=== PATIENT | male | born 1980 | race Caucasian/White ===

== ENCOUNTER 2020-10-11 16:09 | Emergency (ER) | payer MEDICAID ==
[~2020-10-11] VITALS: Ht 162.6 cm; Wt 59.9 kg
[2020-10-11 16:22] VITALS: BP 143/87
--- NOTE | 2020-10-11 17:12 | NUR ---
LAB BEDSIDE COLLECTING BEDWORK
--- NOTE | 2020-10-11 17:15 | NUR ---
[facility] BEDSIDE EVALUATING PT
--- NOTE | 2020-10-11 17:15 | NUR ---
39 Y/O MALE C/O EPIGASTRIC PAIN 05/01 1XDAY. DENIES N/V, DENIES FEVER/CHILLS. PT STATED THE PAIN ONLY OCCURS AFTER HE EATS. DENIES PMH NKA
[2020-10-11 17:23] LABS: BASOPHILS # (AUTO) 0.1 K/uL (0.00-0.22); BASOPHILS % (AUTO) 0.7 % (0.0-2.0); EOSINOPHILS # (AUTO) 0.1 K/uL (0-0.4); EOSINOPHILS % (AUTO) 1.7 % (0.0-4.0); HEMATOCRIT 42.1 % (36-52); LYMPHOCYTES # (AUTO) 2.1 K/uL (2.0-11.5); LYMPHOCYTES % (AUTO) 25.2 % (20.5-51.1); MEAN CORPUSCULAR HEMOGLOBIN 30 pg (27-31); MEAN CORPUSCULAR HGB CONC 33 g/dL (33-37); MEAN CORPUSCULAR VOLUME 90.3 fL (80-94); MONOCYTES # (AUTO) 0.5 K/uL (0.8-1.0); MONOCYTES % (AUTO) 5.6 % (1.7-9.3); NEUTROPHILS # (AUTO) 5.5 K/uL (1.8-7.7); NEUTROPHILS % (AUTO) 66.8 % (42.2-75.2); PLATELET COUNT (AUTO) 175 K/uL (140-450); RED BLOOD CELL COUNT(AUTO) 4.66 MIL/uL (4.20-6.10); RED CELL DISTRIBUTION WIDTH 14.2 % (11.6-13.7); WHITE BLOOD COUNT (AUTO) 8.2 K/uL (4.8-10.8)
[2020-10-11 17:41] LABS: ALBUMIN 3.7 g/dL (3.4-5.0); ANION GAP 13.3 (8-16); CARBON DIOXIDE 26.7 mmol/L (21-32); TOTAL BILIRUBIN 0.2 mg/dL (0.0-1.0)
[2020-10-11] MEDS ORDERED: IBUP-2213 PO (17:54)
[2020-10-11 18:11] VITALS: BP 132/72
--- NOTE | 2020-10-11 18:11 | NUR ---
COVID SWAB COLLECTED AND SENT TO LAB.
== END 2020-10-11 18:11 | disposition home or self-care (01) ==
LOC: MED 16:09
DX: K45.8 Other specified abdominal hernia without obstruction or gangrene (principal); Z20.822 Contact with and (suspected) exposure to COVID-19
CPT/HCPCS: 36415; 80053; 83690; 85025; 99283

== ENCOUNTER 2022-01-14 20:59 | Emergency (ER) | payer MEDICAID ==
[~2022-01-14] VITALS: Ht 167.6 cm; Wt 68.0 kg
[~2022-01-14 20:59] MED LIST: IBUP-2213 PO
--- NOTE | 2022-01-14 21:40 | NUR ---
CALLED TO TRIAGE, NO ANSWER
--- NOTE | 2022-01-14 21:55 | NUR ---
CALLED TO TRIAGE, NO ANSWER
--- NOTE | 2022-01-14 22:01 | NUR ---
CALLED TO TRIAGE NO ANSWER. TOLD PT LEFT. PT LWBS
[2022-01-14 22:23] VITALS: BP 153/76
--- NOTE | 2022-01-14 22:23 | NUR ---
PT RETURNED TO ER TO BE TRIAGED
--- NOTE | 2022-01-14 23:19 | NUR ---
PT CALLED FROM INSIDE LOBBY AND OUTSIDE, NO REPSONSE
--- NOTE | 2022-01-14 23:56 | NUR ---
PT TAKEN TO BED 11.
--- NOTE | 2022-01-15 00:31 | NUR ---
41/M BIB SELF C/C SORE THROAT X YESTERDAY. PATIENT ALSO C/O RIGHT EAR PAIN X1WEEK. +HEADACHE 05/01. DENIES PMHX, RX, ALLERGIES
[2022-01-15] MEDS ORDERED: ACETAMINOPHEN EXTRA STRENGTH 500 MG TAB PO ONE (00:40)
[2022-01-15] MEDS ORDERED: AMOXICILLIN 500 MG CAP PO ONE (00:55)
--- NOTE | 2022-01-15 01:07 | NUR ---
PATIENT MEDICATED. TOLERATED WELL.
[2022-01-15] MEDS ORDERED: ACET-10509 PO (01:20)
[2022-01-15] MEDS ORDERED: AMOX500C25 PO (01:20)
[2022-01-15 01:29] VITALS: BP 148/78
--- NOTE | 2022-01-15 01:29 | NUR ---
Patient discharged with v/s stable. Written and verbal after care instructions given and explained. Patient alert, oriented and verbalized understanding of instructions. Ambulatory with steady gait. All questions addressed prior to discharge. ID band removed. Patient advised to follow up with PMD. Rx of amoxicillin, acetaminophen given. Patient educated on indication of medication including possible reaction and side effects. Opportunity to ask questions provided and answered.
== END 2022-01-15 01:29 | disposition home or self-care (01) ==
LOC: MED 20:59
DX: H61.21 Impacted cerumen, right ear (principal); H66.91 Otitis media, unspecified, right ear; G44.209 Tension-type headache, unspecified, not intractable
CPT/HCPCS: 99283

== ENCOUNTER 2022-02-08 00:39 | Emergency (ER) | payer MEDICAID ==
[~2022-02-08] VITALS: Ht 162.6 cm; Wt 70.3 kg
[~2022-02-08 00:39] MED LIST changes: +ACET-10509 PO; +AMOX500C25 PO
[2022-02-08 00:42] VITALS: BP 150/85
--- NOTE | 2022-02-08 00:45 | NUR ---
PT AMBULATED TO BED #2
--- NOTE | 2022-02-08 01:03 | NUR ---
pt is a ecuadorean speaker came in with back upper pain. he said pain is 5/10. pt is from home ambulatory and room
[2022-02-08] MEDS ORDERED: LIDOCAINE 5% 1 EA PATCH TP SCH (01:45)
[2022-02-08] MEDS ORDERED: ACETAMINOPHEN EXTRA STRENGTH 500 MG TAB PO ONE (01:45)
--- NOTE | 2022-02-08 01:52 | NUR ---
COVID, INFLUENZA, STREP COLLECTED. SPECIMENS TO LAB.
[2022-02-08] MEDS ORDERED: EMLAC TP (02:31)
[2022-02-08] MEDS ORDERED: ACET-10509 PO (02:31)
[2022-02-08] MEDS ORDERED: MENT7.6L6 PO (02:51)
[2022-02-08 03:21] VITALS: BP 150/85
--- NOTE | 2022-02-08 03:23 | NUR ---
Patient discharged with v/s stable. Written and verbal after care instructions given and explained. Patient verbalized understanding. Ambulatory with steady gait. All questions addressed prior to discharge. Advised to follow up with PMD. Pt left with his belongings
== END 2022-02-08 02:45 | disposition home or self-care (01) ==
LOC: MED 00:39
DX: S29.012A Strain of muscle and tendon of back wall of thorax, initial encounter (principal); Z20.822 Contact with and (suspected) exposure to COVID-19; I10 Essential (primary) hypertension; J02.9 Acute pharyngitis, unspecified; F17.200 Nicotine dependence, unspecified, uncomplicated; Z71.6 Tobacco abuse counseling; Z79.899 Other long term (current) drug therapy; X58.XXXA Exposure to other specified factors, initial encounter; Y93.89 Activity, other specified; Y92.89 Other specified places as the place of occurrence of the external cause; Y99.8 Other external cause status
CPT/HCPCS: 87081; 99283

== ENCOUNTER 2022-02-21 00:06 | Emergency (ER) | payer MEDICAID ==
[~2022-02-21] VITALS: Ht 167.6 cm; Wt 72.6 kg
[~2022-02-21 00:06] MED LIST changes: +EMLAC TP; +MENT7.6L6 PO
[2022-02-21 00:27] VITALS: BP 129/89
--- NOTE | 2022-02-21 00:30 | NUR ---
TO LOBBY A/W BED AMBULATORY
--- NOTE | 2022-02-21 01:35 | NUR ---
PT CALLED IN LOBBY AND OUTSIDE WITH NO ANSWER. PATIENT LEFT WITHOUT BEING SEEN BY DR. PARRY. NO FURTHER CARE PROVIDED FOR PATIENT.
--- NOTE | 2022-02-21 01:50 | NUR ---
informed by admit that pt has returned to the lobby to be seen
--- NOTE | 2022-02-21 01:55 | NUR ---
PT TO BED #5
[2022-02-21] MEDS ORDERED: CARB15DR61 OT (02:13)
--- NOTE | 2022-02-21 02:25 | NUR ---
Patient discharged with v/s stable. Written and verbal after care instructions given and explained. Patient alert, oriented and verbalized understanding of instructions. Ambulatory with . All questions addressed prior to discharge. ID band removed. Patient advised to follow up with PMD. Rx of DEBROX given. Patient educated on indication of medication including possible reaction and side effects. Opportunity to ask questions provided and answered.
== END 2022-02-21 02:25 | disposition home or self-care (01) ==
LOC: MED 00:06
DX: H61.23 Impacted cerumen, bilateral (principal); Z79.899 Other long term (current) drug therapy
CPT/HCPCS: 99282

== ENCOUNTER 2022-07-21 23:25 | Emergency (ER) | payer MEDICAID ==
[~2022-07-21] VITALS: Ht 170.2 cm; Wt 65.8 kg
[~2022-07-21 23:25] MED LIST changes: +CARB15DR61 OT
[2022-07-21 23:36] VITALS: BP 140/93; PULSE 73; RESP 20; TEMP 98.1; O2SAT 100
--- NOTE | 2022-07-21 23:45 | NUR ---
PT TO BED #4
[2022-07-21] MEDS ORDERED: DICYCLOMINE HCL LIQUID 20 MG, ALUMINUM HYD/MAG/SIMETHICONE 30 ML, LIDOCAINE VISCOUS 2% ... PO ONE ×3 (23:50)
[2022-07-22] MEDS ORDERED: ALUMINUM HYD/MAG/SIMETHICONE 30 ML UDC ONE (00:39)
[2022-07-22] MEDS ORDERED: DICYCLOMINE HCL LIQUID 10 MG/5 ML UDC ONE (00:39)
[2022-07-22] MEDS ORDERED: KETOROLAC 30 MG/ML VIAL IM ONE (00:40)
[2022-07-22] MEDS ORDERED: ONDANSETRON 4 MG ODT PO ONE (00:40)
[2022-07-22 00:59] LABS: BASOPHILS % (AUTO) 0.4 % (0.0-2.0); EOSINOPHILS # (AUTO) 0.2 K/uL (0-0.4); EOSINOPHILS % (AUTO) 1.6 % (0.0-4.0); HEMATOCRIT 41.7 % (36-52); HEMOGLOBIN 14.1 g/dL (12.0-18.0); LYMPHOCYTES # (AUTO) 2.1 K/uL (2.0-11.5); LYMPHOCYTES % (AUTO) 20.4 % (20.5-51.1); MEAN CORPUSCULAR HEMOGLOBIN 30 pg (27-31); MEAN CORPUSCULAR HGB CONC 34 g/dL (33-37); MEAN CORPUSCULAR VOLUME 87.4 fL (80-94); MONOCYTES # (AUTO) 0.8 K/uL (0.8-1.0); MONOCYTES % (AUTO) 8.3 % (1.7-9.3); NEUTROPHILS # (AUTO) 7.1 K/uL (1.8-7.7); NEUTROPHILS % (AUTO) 69.3 % (42.2-75.2); PLATELET COUNT (AUTO) 181 K/uL (140-450); RED BLOOD CELL COUNT(AUTO) 4.77 MIL/uL (4.20-6.10); RED CELL DISTRIBUTION WIDTH 14.1 % (11.6-13.7); WHITE BLOOD COUNT (AUTO) 10.3 K/uL (4.8-10.8)
--- NOTE | 2022-07-22 01:00 | NUR ---
Patient resting in bed, A/Ox4, chest rise and fall symmetrical, no s/s of distress, on monitor.
[2022-07-22 01:17] LABS: ANION GAP 10.8 (8-16); CARBON DIOXIDE 28.7 mmol/L (21-32); CREATININE 0.9 mg/dL (0.6-1.3); POTASSIUM 3.5 mmol/L (3.5-5.1); TOTAL BILIRUBIN 0.2 mg/dL (0.0-1.0)
[2022-07-22] MEDS ORDERED: BEN10 PO (01:42)
[2022-07-22] MEDS ORDERED: MAG-27 PO (01:42)
--- NOTE | 2022-07-22 02:10 | NUR ---
Patient resting in bed, A/Ox4, chest rise and fall symmetrical, no c/o pain or s/s of distress, on monitor.
[2022-07-22 02:45] VITALS: BP 122/85; PULSE 79; RESP 16; TEMP 98.2; O2SAT 100
== END 2022-07-22 02:45 | disposition home or self-care (01) ==
LOC: MED 23:25
DX: R10.13 Epigastric pain (principal); R19.7 Diarrhea, unspecified; R11.0 Nausea; Z79.899 Other long term (current) drug therapy
CPT/HCPCS: 36415; 80053; 83690; 85025; 96372; 99284; J1885; Q0162

== ENCOUNTER 2022-09-25 00:02 | Emergency (ER) | payer MEDICAID ==
[~2022-09-25] VITALS: Ht 165.1 cm; Wt 59.0 kg
[~2022-09-25 00:02] MED LIST changes: +BEN10 PO; +MAG-27 PO
[2022-09-25 00:11] VITALS: BP 151/85; PULSE 88; RESP 12; TEMP 98.6; O2SAT 100
--- NOTE | 2022-09-25 00:13 | NUR ---
PT TO BED 1
--- NOTE | 2022-09-25 00:34 | NUR ---
LEFT EYE DISCHARGE X1DAY
[2022-09-25] MEDS ORDERED: ERYT5OIN51 OP (01:10)
--- NOTE | 2022-09-25 01:26 | NUR ---
Patient discharged with v/s stable. Written and verbal after care instructions given and explained. Patient alert, oriented and verbalized understanding of instructions. Ambulatory with to home. All questions addressed prior to discharge. ID band removed. Patient advised to follow up with PMD. Rx of ERYTHROMYCIN given. Patient educated on indication of medication including possible reaction and side effects. Opportunity to ask questions provided and answered.
== END 2022-09-25 01:26 | disposition home or self-care (01) ==
LOC: MED 00:02
DX: H10.9 Unspecified conjunctivitis (principal); B96.89 Other specified bacterial agents as the cause of diseases classified elsewhere; H11.002 Unspecified pterygium of left eye; Z79.899 Other long term (current) drug therapy
CPT/HCPCS: 99283

== ENCOUNTER 2022-10-14 21:47 | Emergency (ER) | payer MEDICAID ==
[~2022-10-14] VITALS: Ht 167.6 cm; Wt 59.0 kg
[~2022-10-14 21:47] MED LIST changes: +ERYT5OIN51 OP
[2022-10-14 21:50] VITALS: BP 167/89; PULSE 85; RESP 16; TEMP 97.4; O2SAT 99
[2022-10-15] MEDS ORDERED: KETOROLAC 30 MG/ML VIAL IM ONE (00:45)
[2022-10-15] MEDS ORDERED: IBUPROFEN 400 MG TAB PO ONE (00:55)
[2022-10-15] MEDS ORDERED: NAPR-54 PO (01:22)
[2022-10-15 01:58] VITALS: BP 129/86; PULSE 66; RESP 17; TEMP 97.9; O2SAT 100
== END 2022-10-15 01:58 | disposition home or self-care (01) ==
LOC: MED 21:47
DX: M54.50 Low back pain, unspecified (principal); R07.89 Other chest pain; Z79.899 Other long term (current) drug therapy
CPT/HCPCS: 71045; 93005; 99283; J1885; Q0092

== ENCOUNTER 2023-01-14 21:49 | Emergency (ER) | payer SELFPAY ==
[~2023-01-14] VITALS: Ht 162.6 cm; Wt 65.8 kg
[~2023-01-14 21:49] MED LIST changes: +NAPR-54 PO
[2023-01-14 22:00] VITALS: BP 124/70; PULSE 82; RESP 16; TEMP 98.2; O2SAT 98
[2023-01-14] MEDS ORDERED: FAMOTIDINE 20 MG TAB PO ONE (22:15)
[2023-01-14] MEDS ORDERED: ONDANSETRON 4 MG ODT PO ONE (22:15)
[2023-01-14] MEDS ORDERED: ALUMINUM HYD/MAG/SIMETHICONE 30 ML UDC PO ONE (22:15)
[2023-01-14 22:50] LABS: BASOPHILS % (AUTO) 0.5 % (0.0-2.0); EOSINOPHILS # (AUTO) 0.1 K/uL (0-0.4); EOSINOPHILS % (AUTO) 2.2 % (0.0-4.0); HEMATOCRIT 41.2 % (36-52); HEMOGLOBIN 13.6 g/dL (12.0-18.0); LYMPHOCYTES # (AUTO) 1.2 K/uL (2.0-11.5); LYMPHOCYTES % (AUTO) 19.9 % (20.5-51.1); MEAN CORPUSCULAR HEMOGLOBIN 29 pg (27-31); MEAN CORPUSCULAR HGB CONC 33 g/dL (33-37); MEAN CORPUSCULAR VOLUME 88.1 fL (80-94); MONOCYTES # (AUTO) 0.7 K/uL (0.8-1.0); MONOCYTES % (AUTO) 11.1 % (1.7-9.3); NEUTROPHILS # (AUTO) 4.1 K/uL (1.8-7.7); NEUTROPHILS % (AUTO) 66.3 % (42.2-75.2); PLATELET COUNT (AUTO) 153 K/uL (140-450); RED BLOOD CELL COUNT(AUTO) 4.68 MIL/uL (4.20-6.10); RED CELL DISTRIBUTION WIDTH 14.1 % (11.6-13.7); WHITE BLOOD COUNT (AUTO) 6.2 K/uL (4.8-10.8)
[2023-01-14 23:09] LABS: ALBUMIN 3.7 g/dL (3.4-5.0); ANION GAP 8.8 (8-16); CALCIUM 8.5 mg/dL (8.5-10.1); CARBON DIOXIDE 29.2 mmol/L (21-32); CREATININE 1.1 mg/dL (0.6-1.3)
[2023-01-14 23:17] LABS: TOTAL BILIRUBIN 0.5 mg/dL (0.0-1.0); TOTAL PROTEIN, SERUM 7.1 g/dL (6.4-8.2)
[2023-01-15] MEDS ORDERED: FAMO-90 PO (01:00)
[2023-01-15] MEDS ORDERED: MAG355OR2 PO (01:00)
[2023-01-15 01:31] VITALS: BP 124/70; PULSE 82; RESP 16; TEMP 98.2; O2SAT 98
== END 2023-01-15 01:31 | disposition home or self-care (01) ==
LOC: MED 21:49
DX: R10.13 Epigastric pain (principal); Z79.899 Other long term (current) drug therapy; Z79.1 Long term (current) use of non-steroidal anti-inflammatories (NSAID); Z79.2 Long term (current) use of antibiotics
CPT/HCPCS: 36415; 80053; 83690; 85025; 99284; Q0162

== ENCOUNTER 2023-12-09 22:56 | Emergency (ER) | payer OTHER ==
[~2023-12-09] VITALS: Ht 170.2 cm; Wt 60.3 kg
[~2023-12-09 22:56] MED LIST changes: -ACET-10509 PO; +ACET500T99 PO; +FAMO-90 PO; +MAG355OR2 PO; +MENT7.6L13 PO; -MENT7.6L6 PO; +NAPR-337 PO; -NAPR-54 PO
[2023-12-09 22:59] VITALS: BP 144/92; PULSE 71; RESP 18; TEMP 97.7; O2SAT 98
[2023-12-10] MEDS: ACETAMINOPHEN EXTRA STRENGTH 500 MG TAB PO ONE (02:37)
[2023-12-10] MEDS ORDERED: CHLO473S62 PO (03:03)
[2023-12-10] MEDS ORDERED: ACET500T99 PO (03:03)
== END 2023-12-10 03:23 | disposition home or self-care (01) ==
LOC: MED 22:56
DX: S00.531A Contusion of lip, initial encounter (principal); S09.90XA Unspecified injury of head, initial encounter; Z79.899 Other long term (current) drug therapy; Y04.2XXA Assault by strike against or bumped into by another person, initial encounter; Y92.89 Other specified places as the place of occurrence of the external cause; Y93.89 Activity, other specified; Y99.8 Other external cause status
CPT/HCPCS: 70450; 99284

== ENCOUNTER 2023-12-21 01:30 | Emergency (ER) | payer OTHER ==
[~2023-12-21] VITALS: Ht 162.6 cm; Wt 61.2 kg
[~2023-12-21 01:30] MED LIST changes: +CHLO473S62 PO
[2023-12-21 01:35] VITALS: BP 166/102; PULSE 71; RESP 16; TEMP 97.9; O2SAT 100
[2023-12-21] MEDS ORDERED: ZINC10OI TP (01:58)
[2023-12-21] MEDS ORDERED: MEBE100T PO (02:26)
== END 2023-12-21 02:45 | disposition home or self-care (01) ==
LOC: MED 01:30
DX: L29.0 Pruritus ani (principal); Z79.899 Other long term (current) drug therapy
CPT/HCPCS: 99283